=== PATIENT | male | born 1985 | race Two or more races ===

== ENCOUNTER 2023-04-23 10:31 | Emergency (ER) | payer BC ==
[~2023-04-23] VITALS: Ht 182.9 cm; Wt 131.3 kg
[2023-04-23 11:15] VITALS: BP 121/73; PULSE 81; RESP 18; TEMP 97.6; O2SAT 98
[2023-04-23] MEDS ORDERED: cefTRIAXone SOD 1,000 MG VL IM ONE (11:45)
[2023-04-23] MEDS ORDERED: PRED20TA2 PO (12:12)
[2023-04-23] MEDS ORDERED: PROM1SOL4 PO (12:12)
[2023-04-23] MEDS ORDERED: AZIT500T66 PO (12:12)
== END 2023-04-23 12:25 | disposition home or self-care (01) ==
LOC: ER 10:31
DX: J20.9 Acute bronchitis, unspecified (principal); J03.90 Acute tonsillitis, unspecified
CPT/HCPCS: 71046; 96372; 99283; J0696